=== PATIENT | female | born 1990 | race Hispanic/Latino ===

== ENCOUNTER 2017-11-20 10:34 | Emergency (ER) | payer OTHER ==
[2017-11-20] MEDS: AUGMENTIN 875 MG TAB PO (12:43)
[2017-11-20] MEDS: ADACEL/BOOSTRIX VACCINE (DIPHTH/PERTUSS/ACELL/TETANUS)0.5ML SYR (90715) IM (12:44)
== END 2017-11-20 13:02 | disposition home or self-care (01) ==
LOC: M ED 10:34
DX: S61.451A Open bite of right hand, initial encounter (principal); W54.0XXA Bitten by dog, initial encounter; Y92.9 Unspecified place or not applicable; Y93.K9 Activity, other involving animal care
CPT/HCPCS: 90715

== ENCOUNTER → 2018-01-10 | Outpatient (REF) | payer OTHER ==
[2018-01-10 19:21] LABS: CHLAMYDIA DNA AMPLIFICATION NEGATIVE (NEGATIVE); GC DNA AMPLIFICATION NEGATIVE (NEGATIVE)
== END ==
LOC: M SFHCLERA 17:16
DX: Z12.4 Encounter for screening for malignant neoplasm of cervix (principal); R87.612 Low grade squamous intraepithelial lesion on cytologic smear of cervix (LGSIL); Z87.42 Personal history of other diseases of the female genital tract
CPT/HCPCS: 87591

== ENCOUNTER 2018-01-29 12:13 | Emergency (ER) | payer OTHER ==
[2018-01-29] MEDS: LIDOCAINE 2% W/EPIN INJ 20ML **PRES FREE INJ (14:09)
[2018-01-29] MEDS ORDERED: IBUPROFEN 600 MG TAB As Ordered (15:13)
[2018-01-29] MEDS: AUGMENTIN 875 MG TAB PO (15:15)
[2018-01-29] MEDS: ONDANSETRON 4 MG ORAL DISINTEGRATING TAB (S0181) PO (15:15)
[2018-01-29] MEDS: PERCOCET 5MG/325MG TAB PO (15:15)
[2018-01-29] MEDS: IBUPROFEN 600 MG TAB PO (15:26)
== END 2018-01-29 15:28 | disposition home or self-care (01) ==
LOC: M ED 12:13
DX: S01.532A Puncture wound without foreign body of oral cavity, initial encounter (principal); S01.83XA Puncture wound without foreign body of other part of head, initial encounter; S61.432A Puncture wound without foreign body of left hand, initial encounter; S01.511A Laceration without foreign body of lip, initial encounter; W54.0XXA Bitten by dog, initial encounter; Y92.099 Unspecified place in other non-institutional residence as the place of occurrence of the external cause; Y93.89 Activity, other specified; Z87.891 Personal history of nicotine dependence
CPT/HCPCS: 12001

== ENCOUNTER → 2018-04-18 | Outpatient (REF) | payer OTHER | LOC: M LAB REF 12:01 | DX: R87.612 Low grade squamous intraepithelial lesion on cytologic smear of cervix (LGSIL) (principal) ==

== ENCOUNTER → 2018-12-26 | Outpatient (REF) | payer OTHER ==
[~2018-12-26] MED LIST: AUGM875T28 PO; PERC5TAB12 PO; ZOFR4TAB14 PO
== END ==
LOC: M SFHCLERA 17:46
PROVIDERS: ATTEND Physician Assistant
DX: R50.9 Fever, unspecified (principal)

== ENCOUNTER → 2019-01-14 | Outpatient (CLI) | payer OTHER ==
--- NOTE | 2019-01-14 18:31 | REP ---
Clinical: Pelvic and suprapubic pain. Technique: Transabdominal pelvic ultrasound followed by transvaginal examination for better evaluation of the endometrium and adnexa with color Doppler evaluation. Findings: Anteverted uterus measures 8.5 x 3.9 x 5.1 cm. Endometrial complex measures 9.3 mm thickness. No discrete uterine or endometrial abnormality appreciated. Bilateral ovaries demonstrate normal follicles and vascularity without evidence for torsion. Right ovary measures 2.7 x 1.5 x 4.0 cm; RI 0.58. Left ovary measures 3.8 x 2.9 x 3.3 cm and includes 1.6 cm hemorrhagic dominant follicle; RI 0.63. No pelvic fluid or adnexal mass lesion. Bladder is incompletely distended and measures 4.1 x 1.3 x 3.2 cm. Impression: 1. Essentially normal pelvic ultrasound. No torsion. 2. Hemorrhagic dominant follicle in the left ovary. Electronically Signed by Sharif Tong MD 01/14/2019 06:21 P
== END ==
LOC: M RAD 17:34
PROVIDERS: ATTEND Nurse Practitioner Family
DX: N83.02 Follicular cyst of left ovary (principal); N85.4 Malposition of uterus

== ENCOUNTER → 2019-07-26 | Outpatient (CLI) | payer OTHER | LOC: M SMT 09:46 | PROVIDERS: ATTEND Obstetrics & Gynecology | DX: Z80.3 Family history of malignant neoplasm of breast (principal) ==

== ENCOUNTER → 2019-07-26 | Outpatient (REF) | payer OTHER | LOC: M LAB REF 13:17 | PROVIDERS: ATTEND Obstetrics & Gynecology | DX: Z12.4 Encounter for screening for malignant neoplasm of cervix (principal) ==

== ENCOUNTER → 2019-10-28 | Outpatient (REF) | payer OTHER | LOC: M WHC 13:35 | PROVIDERS: ATTEND Obstetrics & Gynecology | DX: R87.612 Low grade squamous intraepithelial lesion on cytologic smear of cervix (LGSIL) (principal) ==

== ENCOUNTER → 2019-11-25 | Outpatient (REF) | payer OTHER | LOC: M SFHCWAGY 09:38 | PROVIDERS: ATTEND Obstetrics & Gynecology | DX: D06.9 Carcinoma in situ of cervix, unspecified (principal) ==

== ENCOUNTER → 2020-03-11 | Outpatient (REF) | payer OTHER | LOC: M SFHCLERA 14:50 | PROVIDERS: ATTEND Family Medicine | DX: R39.15 Urgency of urination (principal) ==

== ENCOUNTER → 2020-03-19 | Outpatient (REF) | payer OTHER ==
[2020-03-19 20:01] LABS: CHLAMYDIA DNA AMPLIFICATION NEGATIVE (NEGATIVE); GC DNA AMPLIFICATION NEGATIVE (NEGATIVE)
== END ==
LOC: M SFHCLUC 16:59
DX: R39.89 Other symptoms and signs involving the genitourinary system (principal)

== ENCOUNTER → 2020-03-27 | Outpatient (CLI) | payer OTHER ==
--- NOTE | 2020-03-28 07:28 | REP ---
URINARY BLADDER ULTRASOUND: Real-time sonographic evaluation of urinary bladder performed. Bladder measures 6.3 x 8.2 x 4.0 cm. Volume is 135 mL. No mass or calculus is visualized. Ureteral jets are seen in the urinary bladder with Doppler color evaluation. Postvoid residual is 17 mL, which is 12% of the original volume. IMPRESSION: Essentially unremarkable bladder ultrasound. Postvoid residual is 12% of the original volume. Electronically Signed by Jase Howard MD 03/30/2020 12:05 P
== END ==
LOC: M LRY 14:20
PROVIDERS: ATTEND Family Medicine
DX: R39.89 Other symptoms and signs involving the genitourinary system (principal)

== ENCOUNTER → 2020-03-27 | Outpatient (CLI) | payer OTHER | LOC: M LRY 13:43 | PROVIDERS: ATTEND Family Medicine | DX: R39.89 Other symptoms and signs involving the genitourinary system (principal) ==